=== PATIENT | female | born 2000 | race African-American/Black ===

== ENCOUNTER 2023-10-31 20:56 | Emergency (ER) | payer MEDICAID ==
[~2023-10-31] VITALS: Ht 165.1 cm; Wt 67.0 kg
[2023-10-31 21:33] VITALS: BP 153/93; PULSE 75; RESP 18; TEMP 98; O2SAT 100
[2023-10-31] MEDS: KETOROLAC 15MG/ML VIAL IM ONE (23:45)
== END 2023-11-01 00:55 | disposition home or self-care (01) ==
LOC: ER 20:56
DX: R51.9 Headache, unspecified (principal); R07.81 Pleurodynia; V49.49XA Driver injured in collision with other motor vehicles in traffic accident, initial encounter; Y93.89 Activity, other specified; Y92.89 Other specified places as the place of occurrence of the external cause; Y99.8 Other external cause status
CPT/HCPCS: 99283; 71045; J1885